=== PATIENT | male | born 1985 | race African-American/Black ===

== ENCOUNTER 2020-09-10 18:29 | Emergency (ER) | payer OTHER ==
[~2020-09-10] VITALS: Ht 177.8 cm; Wt 108.9 kg
[2020-09-11] MEDS ORDERED: ACETAMINOPHEN/CODEINE#3 (300/30mg) TAB PO ONE (01:15)
[2020-09-11 04:30] VITALS: BP 118/69
== END 2020-09-11 04:38 | disposition home or self-care (01) ==
LOC: EDBD 18:29 → ER 18:29
DX: S16.1XXA Strain of muscle, fascia and tendon at neck level, initial encounter (principal); R07.89 Other chest pain; R10.9 Unspecified abdominal pain; V43.52XA Car driver injured in collision with other type car in traffic accident, initial encounter; Y93.89 Activity, other specified; Y92.410 Unspecified street and highway as the place of occurrence of the external cause; Y99.8 Other external cause status
CPT/HCPCS: 71250; 72125; 72192